=== PATIENT | female | born 1985 | race Caucasian/White ===

== ENCOUNTER → 2018-01-28 14:02 | Outpatient (CLI) | payer SELFPAY ==
[2018-01-28 16:30] LABS: Chlamydia Trachomatis by PCR Negative (Negative); Neisserai gonorrhoeae by PCR Negative (Negative); Probe Check PASS; Sample Adequacy Control PASS; Specimen Processing Control PASS
[2018-01-29 14:31] LABS: HPV Reflexed? NOT INDICATED
== END ==
PROVIDERS: Visit Provider Obstetrics & Gynecology
DX: Z12.4 Encounter for screening for malignant neoplasm of cervix (principal); Z11.3 Encounter for screening for infections with a predominantly sexual mode of transmission
CPT/HCPCS: 87491; 87591; 88175; G0145

== ENCOUNTER → 2018-02-15 11:46 | Outpatient (CLI) | payer SELFPAY ==
--- NOTE | 2018-02-15 11:46 | DT_ITS ---
This patient was seen during an EMR downtime February 08, 2018 - February 15, 2018. This patient may have a combination of paper and electronic documentation or all paper documentation. All documentation is viewable within the e-chart portion of [email or web address] for each patient visit.
[2018-02-15 12:19] LABS: Absolute Lymphocyte Count 1.65 X10^3/ul (0.83-4.51); Absolute Neutrophil Count 7.9 X10^3/uL (2.0-7.7); Basophil# 0.02 X10^3/uL; Basophil% 0.2 % (0-1); Eosinophil# 0.13 X10^3/uL; Eosinophils% 1.2 % (0-5); Hemoglobin 12.7 g/dl (12.0-15.0); Lymphocyte # 1.65 X10^3/ul (4.0); Lymphocyte % 15.7 % (19-41); Mean Corp Hgb Conc 34.3 g/gl (32-36); Mean Corpuscular Hgb 31.3 pg (27.0-32.0); Mean Corpuscular Volume 91.1 fL (81-99); Mean Platelet Vol. 9.3 fl (6.2-12.0); Monocyte# 0.81 X10^3/uL; Monocyte% 7.7 % (0-10); Neutrophil # 7.92 X10^3/uL (2.7-7.7); Neutrophil % 75.1 % (47-70); Platelet Count 298 K/mm3 (150-450); RBC Distribution Width CV 13.5 % (11.6-14.6); RBC Distribution Width SD 44.7 fl (35.1-43.9); Red Blood Count 4.06 M/mm3 (4.2-5.4); White Blood Count 10.5 K/mm3 (4.4-11.0)
[2018-02-15 12:20] LABS: POSITIVE COUNT NO; POSITIVE DIFFERENTIAL NO; POSITIVE MORPHOLOGY NO
[2018-02-15 12:40] LABS: Color, Urine Yellow (Yellow); Glucose, Dipstick Normal (Normal); Ketone-Dipstick Negative (Negative); Leukocyte Esterase-Dipstick 25 /ul (Negative); Nitrite-Dipstick Negative (Negative); Occult Blood-Urine 25 /ul (Negative); Protein-Dipstick Negative (Negative); Specific Gravity, Urine 1.015 (1.002-1.030); Urine Bilirubin Dipstick Negative (Negative); Urine Clarity Sl. Cloudy (Clear); Urine Urobilinogen Normal (Normal)
[2018-02-15 12:48] LABS: Thyroid Stim Hormone (TSH) 0.79 uIU/mL (0.358-3.74)
[2018-02-15 13:28] LABS: HIV - WCH Non-Reactive (Nonreactive); Rubella IgG 27.2 IU/mL
[2018-02-19 03:47] LABS: Prenatal RPR NONREACTIVE (NONREACTIVE)
== END ==
PROVIDERS: Visit Provider Obstetrics & Gynecology
DX: Z34.81 Encounter for supervision of other normal pregnancy, first trimester (principal)
CPT/HCPCS: 36415; 81002; 84443; 85025; 86703; 86762; 86803; 87340

== ENCOUNTER → 2018-06-15 10:31 | Outpatient (CLI) | payer SELFPAY ==
[2018-06-15 12:22] LABS: Hematocrit 36.4 % (37-47); Hemoglobin 12.5 g/dl (12.0-15.0); Mean Corp Hgb Conc 34.3 g/gl (32-36); Mean Corpuscular Hgb 32.1 pg (27.0-32.0); Mean Corpuscular Volume 93.3 fL (81-99); Mean Platelet Vol. 10.1 fl (6.2-12.0); Platelet Count 310 K/mm3 (150-450); RBC Distribution Width CV 13.1 % (11.6-14.6); RBC Distribution Width SD 43.6 fl (35.1-43.9); White Blood Count 12.7 K/mm3 (4.4-11.0)
[2018-06-15 12:25] LABS: Scan Indicated on CBC? Y/N NO
[2018-06-15 12:36] LABS: Glucose Challenge Gest 1H 50g 132 mg/dL (70-140)
== END ==
PROVIDERS: Visit Provider Obstetrics & Gynecology
DX: Z34.82 Encounter for supervision of other normal pregnancy, second trimester (principal)
CPT/HCPCS: 36415; 82950; 85027

== ENCOUNTER 2018-09-01 12:35 | Inpatient (IN) | payer SELFPAY ==
--- NOTE | 2018-08-26 11:33 | NURSING ---
Pt. states she took a couple of natural things for her anxiety rather than prescriptions. States Dr. Slaughter was aware of these natural remedies. One was called Tranquiline, she thought, unsure of other name.
[2018-08-26 12:15] VITALS: BMI 42.3
[2018-09-01] VITALS (19 sets, daily range): BP systolic 95–116; BP diastolic 46–88; PULSE 60–85; RESP 16–20; TEMP 36.3–37; O2SAT 95–99; BMI 43.7
[2018-09-01] MEDS: Lactated Ringers 1,000 ML 100 ML IV ×3 (11:20→17:15)
[2018-09-01 11:44] LABS: Absolute Lymphocyte Count 1.48 X10^3/ul (0.83-4.51); Absolute Neutrophil Count 10.2 X10^3/uL (2.0-7.7); Basophil# 0.02 X10^3/uL; Basophil% 0.2 % (0-1); Eosinophil# 0.18 X10^3/uL; Eosinophils% 1.4 % (0-5); Hematocrit 36.3 % (37-47); Hemoglobin 12.2 g/dl (12.0-15.0); Lymphocyte # 1.48 X10^3/ul (4.0); Lymphocyte % 11.4 % (19-41); Mean Corp Hgb Conc 33.6 g/gl (32-36); Mean Corpuscular Volume 92.4 fL (81-99); Monocyte# 1.06 X10^3/uL; Monocyte% 8.2 % (0-10); Neutrophil # 10.18 X10^3/uL (2.7-7.7); Neutrophil % 78.3 % (47-70); POSITIVE COUNT NO; POSITIVE DIFFERENTIAL NO; POSITIVE MORPHOLOGY NO; Platelet Count 262 K/mm3 (150-450); RBC Distribution Width CV 13.1 % (11.6-14.6); Red Blood Count 3.93 M/mm3 (4.2-5.4)
[2018-09-01] MEDS: Sodium Citrate/Citric Acid 30 ML UDC PO (12:45)
[2018-09-01] MEDS: Cefazolin 2 GM in 0.9% Normal Saline 100 ML IV (12:50)
[2018-09-01] MEDS: Oxytocin 30 units/NS 500 ml 30 UNITS/500 ML IV.SOLN 167 UNITS IV (13:09)
--- NOTE | 2018-09-01 13:32 | PLAC_PTH ---
PATIENT: GLADYS MISHRA LOC: [facility] U#:[id number] AGE/SX: 32/F ROOM: WP004 RE09/01/[address]: Dr. Richelle Slaughter MD : [id number] BED: 1 DIS: 09/04/2018 SPEC #: [id number] RECD: 09/01/18 15:32 STATUS: TYSHAWN RESeverino #: [id number] DALLIN: 09/01/18 13:[address]: Richelle Slaughter DEPT: SURGICAL PATHOLOGY RECD BY: Piyush Bower ENTERED: 09/02/18 10:54 SP TYPE: PLACENTA OTHR DR: No Primary Care Phys Tissues: Placenta, NOS Procedures: Surgery Specimen Level V HEADER OPERATION: Repeat section PRE-OP DIAGNOSIS: Nonreassuring FHT tracing; no movement TISSUE SUBMITTED: Placenta MICROSCOPIC DIAGNOSIS Jaime placenta (653 gm): Umbilical cord - trivascular with no inflammation. Placental membranes - focal acute deciduitis. Placental disc - focal nonspecific chronic villitis, mildly increased intraparenchymal fibrin plaques and mild Kristine-Indra change. AM:lb 09/03/18 MICROSCOPIC DESCRIPTION Slides are reviewed. GROSS DESCRIPTION SPECIMEN: PLACENTA / CLINICAL INFORMATION: A. Weight: 2.824 kg B. Gestational Age: 38 weeks C. Sex: Female PLACENTAL WEIGHT (POST FIXATION): 653 gm PLACENTAL DIMENSIONS: Disrupted, 20 x 15 x 3 cm PLACENTAL SHAPE: Usual ovoid PLACENTAL WEIGHT FOR GESTATIONAL AGE: Within 10-99th percentile MEMBRANES - Present A. Insertion: Marginal B. Site of rupture from edge: At edge of placental disc C. Color of membrane: Montero-peacock D. Abnormalities: None UMBILICAL CORD - Present A. Color: Montero-peacock B. Insertion: Near central insertion C. Length: 31 cm D. Diameter: 1.2 cm E. Number of vessels: Three F. Abnormalities: None PLACENTAL DISC - Present A. Color of surface: Montero-peacock B. surface abnormalities: None C. Maternal cotyledons: Intact with minimal tears D. Attached retro placental clot: No clot E. Cut surface: Dark red and spongy F. Lesions: None G. Separate clot: Absent SECTIONS SUBMITTED: 1. Membrane roll and umbilical cord ( end notched) 2. Placental disc, and maternal surfaces 3. Placental disc, and maternal surfaces 4. Placental disc, and maternal surfaces AM:lb 09/02/18 TC:2 CPT: 19366
--- NOTE | 2018-09-01 13:38 | PCM.DCCSEC ---
Discharge Diet: No Restrictions Discharge Activity: May Shower, May Take a Tub Bath Return to work on:: 10/18/18 May resume sexual activity in: 4-6 weeks Lifting Restrictions: 20 pounds Additional Activity Instructions:: Nothing in the vagina for 4-6 weeks. You may return to work/school in 6 weeks. Change Dressing in (Days):: 7 Remove Dressing in (days):: 7 Cleanse incision/area with: Soap & Water, Keep Dressing Clean & Dry Additional Instructions: If you experience any of the following, contact your healthcare provider. Bleeding that soaks a pad every hour for 2 hours Fever 100.4 or higher Unrelieved incision or abdominal pain Swelling, redness, discharge or bleeding from your incision Problems urinating (including inability to urinate or burning while urinating). Visual changes Severe headache Flu-like symptoms Pain or redness in one of both of your breasts Pain, warmth, tenderness or swelling in your legs, especially the calf area Frequent nausea and vomiting Symptoms of depression or anxiety If you experience any of the following, call 911 or go to the nearest Emergency Room. Chest pain Problems breathing Seizure activity Partial or complete paralysis of a body part, slurred speech, weakness or drooping of the face, or a sudden inability to walk or hold your balance Allergies/Adverse Reactions: Allergies No Known Allergies Allergy (Verified 09/01/18 11:36) Medications to take at Discharge Vits [Prenatabs FA] 1 tablet PO DAILY 08/26/18 Docusate Sodium [Colace] 100 mg PO BID #30 capsule 09/01/18 Naproxen [Naprosyn] 250 - 500 mg PO TID PRN PRN #30 tablet 09/01/18 Oxycodone HCl/Acetaminophen [Percocet 5-325] 1 - 2 tablet PO Q6H PRN PRN 7 Days #20 tablet 09/01/18 Polyethylene Glycol 3350 [Miralax] 17 gm PO DAILY PRN #14 packet 09/01/18 The following prescriptions were given: Oxycodone HCl/Acetaminophen [Percocet 5-325] 1 - 2 tablet PO Q6H PRN PRN 7 Days #20 tablet PRN Reason: Mod-Severe Pain (4-06/16) Naproxen [Naprosyn] 250 - 500 mg PO TID PRN PRN #30 tablet PRN Reason: Mild-Mod Pain (1-01/14) Polyethylene Glycol 3350 [Miralax] 17 gm PO DAILY PRN #14 packet PRN Reason: Constipation Docusate Sodium [Colace] 100 mg PO BID #30 capsule Follow-Up: Call to make an appointment with your doctor for an incision check in 1-2 weeks. You will also need a 6 week post- follow up appointment. Test results from this visit will be discussed in further detail at your follow-up appointment, if applicable. Please Follow Up With: Richelle Slaughter MD - [phone] When: Call to make an appointment for an incision check in 2 weeks. Primary Care Physician: Care Physician,No Primary [Primary Care Provider] - Proposed Discharge Date: 09/05/18
--- NOTE | 2018-09-01 13:42 | DCINST_ITS ---
Discharge Diet: No Restrictions Discharge Activity: May Shower, May Take a Tub Bath Return to work on:: 10/18/18 May resume sexual activity in: 4-6 weeks Lifting Restrictions: 20 pounds Additional Activity Instructions:: Nothing in the vagina for 4-6 weeks. You may return to work/school in 6 weeks. Change Dressing in (Days):: 7 Remove Dressing in (days):: 7 Cleanse incision/area with: Soap & Water, Keep Dressing Clean & Dry Additional Instructions: If you experience any of the following, contact your healthcare provider. * Bleeding that soaks a pad every hour for 2 hours * Fever 100.4 or higher * Unrelieved incision or abdominal pain * Swelling, redness, discharge or bleeding from your incision * Problems urinating (including inability to urinate or burning while urinating). * Visual changes * Severe headache * Flu-like symptoms * Pain or redness in one of both of your breasts * Pain, warmth, tenderness or swelling in your legs, especially the calf area * Frequent nausea and vomiting * Symptoms of depression or anxiety If you experience any of the following, call 911 or go to the nearest Emergency Room. * Chest pain * Problems breathing * Seizure activity * Partial or complete paralysis of a body part, slurred speech, weakness or drooping of the face, or a sudden inability to walk or hold your balance Allergies/Adverse Reactions: Allergies No Known Allergies Allergy (Verified 09/01/18 11:36) Medications to take at Discharge Vits [Prenatabs FA] 1 tablet PO DAILY 08/26/18 Docusate Sodium [Colace] 100 mg PO BID #30 capsule 09/01/18 Naproxen [Naprosyn] 250 - 500 mg PO TID PRN PRN #30 tablet 09/01/18 Oxycodone HCl/Acetaminophen [Percocet 5-325] 1 - 2 tablet PO Q6H PRN PRN 7 Days #20 tablet 09/01/18 Polyethylene Glycol 3350 [Miralax] 17 gm PO DAILY PRN #14 packet 09/01/18 The following prescriptions were given: Oxycodone HCl/Acetaminophen [Percocet 5-325] 1 - 2 tablet PO Q6H PRN PRN 7 Days #20 tablet PRN Reason: Mod-Severe Pain (-06/16) Naproxen [Naprosyn] 250 - 500 mg PO TID PRN PRN #30 tablet PRN Reason: Mild-Mod Pain (-01/14) Polyethylene Glycol 3350 [Miralax] 17 gm PO DAILY PRN #14 packet PRN Reason: Constipation Docusate Sodium [Colace] 100 mg PO BID #30 capsule Follow-Up: Call to make an appointment with your doctor for an incision check in 1-2 weeks. You will also need a 6 week post- follow up appointment. Test results from this visit will be discussed in further detail at your follow- up appointment, if applicable. Please Follow Up With: Richelle Slaughter MD - [phone] When: Call to make an appointment for an incision check in 2 weeks. Primary Care Physician: Care Physician,No Primary [Primary Care Provider] - Proposed Discharge Date: 09/05/18
--- NOTE | 2018-09-01 14:33 | PCM.OP.BLANK ---
Operative Report Date of Procedure: 09/01/18 PROCEDURE: Repeat C section. Preoperative diagnosis: 38 5/7 wk EGA No movement, nonreassuring FHR tracing. Prior C section, planned repeat C section Postop diagnosis: 38 5/7 wk EGA No movement , nonreassuring FHR tracing. Prior C section, planned repeat C section Thick meconium stained fluid Anesthesia: Spinal, Dr Damon, and Av Rosales CRNA Surgeon: Richelle Slaughter MD Reject Opener And Filler: XENIA Tompkins Chef Under present for delivery: Dr Albright EBWilian 600 cc Complications: none Drains: Riddle draining clear yellow appearing urine Fluids: replacement LR Findings: At amniotomy, thick meconium stained fluid was noted. Jaime viable female in vertex presentation. Apgars 3/8/9, Baby weight: 6# 4 oz There was a normal appearing uterus, fallopian tubes and ovaries bilaterally. There were minimal filmy adhesions between the bladder and lower uterine segment. PATH: Placenta to pathology. Routine cord gases were also sent. Narrative account: After the risks, benefits and alternatives of the procedure were reviewed with the patient, informed consent was obtained. The patient was taken to the Operating room with an IV running, and placed in a seated position on the operating table for placement of the spinal. Once the spinal had been administered, she was briefly frog-legged for Riddle catheter placement, and then repositioned to dorsal supine position with leftward displacement of the uterus, and prepped and draped in the usual sterile fashion. Once the spinal was deemed adequate, a Pfannenstiel skin incision was created using the knife (through the prior skin incision scar). The incision was carried down to the rectus fascia using the knife. The fascia was nicked in the midline. The fascial incision was extended bilaterally using curved Osborn scissors. The superior aspect of the fascial incision was grasped with Yuan clamps and tented up and the underlying rectus abdominal muscles were dissected free. In a similar manner, the inferior aspect of the facial incision was grasped with Yuan clamps tented up and the underlying rectus abdominal muscles were dissected free. The rectus abdominis muscles were tented up in the midline with María clamps and the peritoneum was identified and entered by sharp dissection high in the incision. The rectus abdominis muscles were divided along with the peritoneum, superiorly and inferiorly from the initial defect created by sharp dissection. The rectus abdominis muscles and peritenoneum were stretched laterally and a bladder blade was inserted. A bladder flap was created along the lower uterine segment with Metzenbaum scissors . The uterine incision was then created using Metzenbaum scissors. The operators fingertips were used to extend the uterine incision by blunt dissection in a caudad- cephalad orientation . Thick meconium stained fluid was noted at amniotomy. The vertex was then delivered atraumatically through the incision. The OP and nares were bulb suctioned on the abdomen. There was no cry noted. The shoulders delivered easily . The cord clamped x two and cut. And the infant was handed off to the nurse awaiting delivery and to Dr. Albright for attendance, after briefly showing her to her parents. The baby had no spontaneous cry and poor tone was noted. The placenta was then delivered. The uterus was exteriorized and cleared of clots and debris . The uterine incision was repaired with 1 Vicryl in a running locked fashion. A second imbricating layer was then placed, using 1 Monocryl in running nonlocked fashion. Bovie cautery was used to treat any bleeding areas . Excellent hemostasis was noted. At this point the uterus was returned to the abdominal cavity. The gutters were cleared of clots and debris and the incision at the uterus was inspected. Excellent hemostasis was noted. The peritoneal edges and rectus abdominis muscles were reapproximated in the midline with interrupted vertical mattress stitches of 1 Vicryl. Excellent hemostasis was noted at the subfascial space The fascia was closed in a running nonlocked fashion with a Stratofix. The Subcutaneous fatty tissue was Bovie cauterized as needed for hemostasis. This layer was then reapproximated in a running single layer closure of 3-0 Vicryl to eliminate space. The skin edges were closed in a Subcuticular stitch of 4-0 Monocryl. The incision was cleansed. Cavilon, Steristrips, and Mepilex dressing were applied to the skin . The patient was then transferred to the recovery room bed in stable condition after tolerating the procedure well. Sponge, lap, needle and instrument counts correct times two. Medications given preop and intraoperatively included: Ancef 2 gm was given heavy antiarmor weapons infantryman to the operating room. The patient also received Pitocin given IV after cord clamp, and Toradol 30 mg IV times one. For a complete listing of medications given preop and intraoperatively, please see the anesthesia record.
[2018-09-01] MEDS: Ketorolac 30 MG/ML Syringe IV (18:06)
[2018-09-02] VITALS (9 sets, daily range): BP systolic 102–122; BP diastolic 45–80; PULSE 62–82; RESP 16–18; TEMP 36.1–37.3; O2SAT 94–98
[2018-09-02] MEDS: Ketorolac 30 MG/ML Syringe IV ×4 (00:28→18:21)
[2018-09-02] MEDS: Lactated Ringers 1,000 ML 100 ML IV (02:57)
[2018-09-02 06:55] LABS: Hematocrit 33.3 % (37-47); Hemoglobin 11.2 g/dl (12.0-15.0); Mean Corp Hgb Conc 33.6 g/gl (32-36); Mean Corpuscular Hgb 31.3 pg (27.0-32.0); Mean Platelet Vol. 9.9 fl (6.2-12.0); Platelet Count 205 K/mm3 (150-450); RBC Distribution Width CV 13.3 % (11.6-14.6); RBC Distribution Width SD 45.4 fl (35.1-43.9); Red Blood Count 3.58 M/mm3 (4.2-5.4); White Blood Count 12.7 K/mm3 (4.4-11.0)
[2018-09-02 06:58] LABS: Scan Indicated on CBC? Y/N NO
--- NOTE | 2018-09-02 07:26 | PCM.PN.OB ---
Subjective: POD#1 C/S at 38 5/7 wk for nonreassuring FHR tracing. Feeling better, no N/V/D. States some soreness at incision, but really feels good. Tired and returning to bed for rest. Objective: in room, under bili lights. Appears vigorous. - Physical Exam General: Alert, Oriented x3, Cooperative, No apparent distress HEENT: Atraumatic Neck: Supple Abdomen: Soft - Fundus firm, minimally tender c/w postop status Skin: Incision - Mepilex CDI with pinpoint spot of old blood noted, marked. Psych/Mental Status: Normal Affect Vital Signs Temp Pulse Resp BP Pulse Ox 98.7 F 71 18 102/45 L 95 09/02/18 04:11 09/02/18 06:15 09/02/18 06:15 09/02/18 04:11 09/02/18 06:15 Oxygen Delivery Method Room Air Weight: 112.037 kg Body Mass Index (BMI) 43.7 Intake and Output for Last 24 Hours 08/31/18 09/01/18 09/02/18 23:59 23:59 23:59 Intake Total 1297 / 1297 850 / 850 Output Total 575 / 575 400 / 400 Balance 722 / 722 450 / 450 Laboratory Tests Past 24 Hrs 09/01/18 09/01/18 09/02/18 11:20 11:20 06:30 WBC 13.0 H 12.7 H RBC 3.93 L 3.58 L Hgb 12.2 11.2 L Hct 36.3 L 33.3 L MCV 92.4 93.0 MCH 31.0 31.3 MCHC 33.6 33.6 RDW 13.1 13.3 RDW Differential 44.0 H 45.4 H Plt Count 262 205 MPV 10.0 9.9 Immature Gran % (Auto) 0.500 Neut % (Auto) 78.3 H Lymph % (Auto) 11.4 L Phelps % (Auto) 8.2 Eos % (Auto) 1.4 Baso % (Auto) 0.2 Absolute Neuts (auto) 10.2 H Absolute Lymphs (auto) 1.48 Total Counted Not Reportable Blood Type O POSITIVE Antibody Screen NEGATIVE Medical Necessity - Tobacco Use Smoking Status: Former smoker Assessment/Plan POD#1 Repeat C/S 38 5/7 wk for nonreassuring FHR tracing Stable postop. Inc diet and activity as tolerated. D/C jordan for voiding trial. S/L IV for continued Toradol. Begin po pain meds today. Continue care.
[2018-09-02 08:49] LABS: Pathology Specimen OB SEE PATHOLOGY REPORT
[2018-09-02] MEDS: Prenatal Vits Tablet 1 TABLET PO (11:43)
[2018-09-02] MEDS: 0.9% Saline Lock 10 ML Syringe IV ×2 (11:43→18:21)
[2018-09-02] MEDS: oxyCODONE 5 MG Tablet PO ×2 (17:16→18:44)
[2018-09-02] MEDS: Senna/Docusate Sodium 1 Tablet PO (18:44)
[2018-09-03] MEDS: 0.9% Saline Lock 10 ML Syringe IV (00:20)
[2018-09-03] MEDS: Naproxen 250 MG Tablet PO ×3 (00:21→16:30)
[2018-09-03 02:00] VITALS: BP 107/51; PULSE 74; RESP 18; TEMP 36.7; O2SAT 98
[2018-09-03] MEDS: Acetaminophen 500 MG Tablet 1000 MG PO ×3 (02:12→19:59)
[2018-09-03 08:12] VITALS: BP 120/68; PULSE 74; RESP 18; TEMP 36.7; O2SAT 99
--- NOTE | 2018-09-03 08:31 | PCM.PN.OB ---
Subjective: POD#2 Repeat C/S Doing OK. More cramping today. Baby is out of bili lights and ok for dischg. Uncertain if going home today or tomorrow. Self pay. Bottle feeding. States has not showered yet. Didn't like the OxyIR as felt room moving. May try other pain med or take less of that medication. States passing flatus, No N/V/D - Physical Exam General: Alert, Oriented x3, Cooperative, No apparent distress HEENT: Atraumatic Neck: Supple Abdomen: Soft - fundus firm and tender c/w postop status. At approx 2 cm inferior to umbilicus Skin: Incision - Mepilex CDI. Neurological: Cranial nerves II-XII grossly intact Psych/Mental Status: Normal Affect - a little anxious per baseline. Vital Signs Temp Pulse Resp BP Pulse Ox 98.1 F 74 18 120/68 99 09/03/18 08:12 09/03/18 08:12 09/03/18 08:12 09/03/18 08:12 09/03/18 08:12 Oxygen Delivery Method Room Air Weight: 112.037 kg Body Mass Index (BMI) 43.7 Intake and Output for Last 24 Hours 12//18 12/18 18 23:59 23:59 23:59 Intake Total 1297 / 1297 850 / 850 Output Total 575 / 575 1800 / 1800 Balance 722 / 722 -950 / -950 Medical Necessity - Tobacco Use Smoking Status: Former smoker Assessment/Plan POD#2 Repeat C/S 38 5/7 wk for nonreassuring FHR tracing Stable postop. Recommend stay on schedule for aleve and tylenol, may add OxyIR prn. Dischg today or tomorrow, per pt preference . Pkg pricing, self pay.
[2018-09-03] MEDS: Prenatal Vits Tablet 1 TABLET PO (11:12)
[2018-09-03 14:17] VITALS: BP 128/76; PULSE 71; RESP 16; TEMP 37.2; O2SAT 99
[2018-09-03 20:20] VITALS: BP 125/66; PULSE 74; RESP 19; TEMP 37.1; O2SAT 96
[2018-09-04 02:57] VITALS: BP 128/73; PULSE 80; RESP 16; TEMP 36.9; O2SAT 99
[2018-09-04] MEDS: Naproxen 250 MG Tablet PO ×2 (02:57→12:38)
[2018-09-04 10:00] VITALS: BP 121/72; PULSE 73; RESP 16; TEMP 37.1
--- NOTE | 2018-09-04 10:21 | PCM.PN.OB ---
Subjective: POD#3 Repeat C/S at 38 5/7 wk EGA. Feeling very well. 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 States no s/sx of depression and is very happy with baby, recovery. She is planning to bottle feed. Reviewed how to treat engorgement if this occurs States very severe cramping yesterday, then passed a clot and all improved since then. Objective: Sitting up in chair. Smiling, interactive. in room. - Physical Exam General: Alert, Oriented x3, Cooperative, No apparent distress HEENT: Atraumatic Neck: Supple Abdomen: Soft, Non Tender Skin: Incision - Mepilex CDI. Neurological: Cranial nerves II-XII grossly intact Psych/Mental Status: Normal Affect Vital Signs Temp Pulse Resp BP Pulse Ox 98.5 F 80 16 128/73 H 99 09/04/ 02:57 09/04/18 02:57 09/04/18 02:57 09/04/18 02:57 09/04/18 02:57 Oxygen Delivery Method Room Air Weight: 112.037 kg Body Mass Index (BMI) 43.7 Intake and Output for Last 24 Hours 12/18 12/18 09/04/18 23:59 23:59 23:59 Intake Total 850 / 850 Output Total 1800 / 1800 Balance -950 / -950 Medical Necessity - Tobacco Use Smoking Status: Former smoker Assessment/Plan POD#3 Repeat C/S 38 5/7 wk for nonreassuring FHR tracing Stable postop. Dischg today RTO for postop check up as scheduled in 2 wks. , prn sooner. reviewed s/sx of pp depression and encouraged to call in prn if this starts.
--- NOTE | 2018-09-04 10:25 | PN.OBGYN_ITS ---
Subjective: POD#3 Repeat C/S at 38 5/7 wk EGA. Feeling very well. 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 States no s/sx of depression and is very happy with baby, recovery. She is planning to bottle feed. Reviewed how to treat engorgement if this occurs States very severe cramping yesterday, then passed a clot and all improved sinc e then. Objective: Sitting up in chair. Smiling, interactive. in room. - Physical Exam General: Alert, Oriented x3, Cooperative, No apparent distress HEENT: Atraumatic Neck: Supple Abdomen: Soft, Non Tender Skin: Incision - Mepilex CDI. Neurological: Cranial nerves II-XII grossly intact Psych/Mental Status: Normal Affect Vital Signs Temp Pulse Resp BP Pulse Ox 98.5 F 80 16 128/73 H 99 09/04/18 02:57 09/04/18 02:57 09/04/18 02:57 09/04/18 02:57 09/04/18 02:57 Oxygen Delivery Method Room Air Weight: 112.037 kg Body Mass Index (BMI) 43.7 Intake and Output for Last 24 Hours 12/18 12/18 09/04/18 23:59 23:59 23:59 Intake Total 850 / 850 Output Total 1800 / 1800 Balance -950 / -950 Medical Necessity - Tobacco Use Smoking Status: Former smoker Assessment/Plan POD#3 Repeat C/S 38 5/7 wk for nonreassuring FHR tracing Stable postop. Dischg today RTO for postop check up as scheduled in 2 wks. , prn sooner. reviewed s/sx of pp depression and encouraged to call in prn if this starts.
--- NOTE | 2018-09-04 11:44 | PCM.DC.SUM ---
Discharge Date and Diagnosis Date of Admission: 09/01/18 - 38 5/7 wk N/V/D and no movement. Prior C/S Date of Discharge: 09/04/18 - POD#3 Repeat C/S Hospital Course and Treatment Operations: - - Repeat C section Summary of Care Provided: The patient is a 32 year old female at 38 5/7 wk EGA presents for evaluation with CC if N/V/D and no feeling FM for two days. Scheduled for repeat C/S at 39 wks. EFM with decreased variability. IV started and labs sent. Nonreactive NST. Plan was to have BPP, but prior to this being performed the FHR tracing became less reassuring, with decelerations noted. Decision made to proceed with repeat C/S ARTURO for nonreassuring FHR. Underwent repeat C/S on 08/03/18. Procedure findings: east viable female in thick meconium stained fluid with poor tone and poor respiratory effort at delivery. Dr Granados present for delivery due to nonreassuring FHR. Baby apgars 3/8/9 and weight 6# 4 oz. Procedure uncomplicated with minimal blood loss. Postoperative course uneventful with Hgb stable postop at 11.2 g/dl , decreased from 12.2 g/dl preop. AVSS and exam benign. Bottle feeding. Baby under bili lights, then stable for discharge by POD#2 . Patient elected to stay until POD#3 Home in stable condition POD#3. H/o severe pp depression with her son 4 yrs ago. Currently denies any symptoms of depression. Reviewed s/sx and encouraged to call office to notify of symptoms begin. - Physical Exam Vital Signs Temp Pulse Resp BP Pulse Ox 98.7 F 73 16 121/72 H 99 09/04/18 10:00 09/04/18 10:00 09/04/18 10:00 09/04/18 10:00 09/04/18 02:57 Oxygen Delivery Method Room Air Weight: 112.037 kg Body Mass Index (BMI) 43.7 Intake and Output for Last 24 Hours 09/02/18 09/03/18 09/04/18 23:59 23:59 23:59 Intake Total 850 / 850 Output Total 1800 / 1800 Balance -950 / -950 Discharge Diet: No Restrictions Discharge Activity: May Shower, May Take a Tub Bath Return to work on:: 10/18/18 May resume sexual activity in: 4-6 weeks Additional Activity Instructions:: Nothing in the vagina for 4-6 weeks. You may return to work/school in 6 weeks. Change Dressing in (Days):: 7 Remove Dressing in (days):: 7 Cleanse incision/area with: Soap & Water, Keep Dressing Clean & Dry Home Medications: Medications to take at Discharge Vits [Prenatabs FA] 1 tablet PO DAILY 08/26/18 Docusate Sodium [Colace] 100 mg PO BID #30 capsule 09/01/18 Naproxen [Naprosyn] 250 - 500 mg PO TID PRN PRN #30 tablet 09/01/18 Oxycodone HCl/Acetaminophen [Percocet 5-325] 1 - 2 tablet PO Q6H PRN PRN 7 Days #20 tablet 09/01/18 Polyethylene Glycol 3350 [Miralax] 17 gm PO DAILY PRN #14 packet 09/01/18 Following Prescrptions Were Given to Patient: Oxycodone HCl/Acetaminophen [Percocet 5-325] 1 - 2 tablet PO Q6H PRN PRN 7 Days #20 tablet PRN Reason: Mod-Severe Pain (4-10/10) Naproxen [Naprosyn] 250 - 500 mg PO TID PRN PRN #30 tablet PRN Reason: Mild-Mod Pain (1-5/10) Polyethylene Glycol 3350 [Miralax] 17 gm PO DAILY PRN #14 packet PRN Reason: Constipation Docusate Sodium [Colace] 100 mg PO BID #30 capsule Primary Care Physician: Care Physician,No Primary [Primary Care Provider] - Please Follow Up With: Richelle Slaughter MD - [phone] When: Call to make an appointment for an incision check in 2 weeks. Medical Necessity - Tobacco Use Smoking Status: Former smoker Meaningful Use Info Meaningful Use Diagnoses (Choose all that apply): None applicable
[2018-09-04] MEDS: Prenatal Vits Tablet 1 TABLET PO (12:38)
--- NOTE | 2018-09-04 13:04 | NURSING ---
1240 Discharged to home via wheelchair with baby. States she feels good and is ready to go home. States yes, that she is able to care for herself and her .
== END 2018-09-04 12:40 | disposition home or self-care (01) | DRG 788 ==
LOC: WP 13:12 → WPOUT 09-02 07:49
PROVIDERS: Obstetrics & Gynecology; Admitting Provider Obstetrics & Gynecology; Referring Provider Obstetrics & Gynecology; Visit Provider Obstetrics & Gynecology
DX: O34.211 Maternal care for low transverse scar from previous cesarean delivery (principal); O76 Abnormality in fetal heart rate and rhythm complicating labor and delivery; O36.8130 Decreased fetal movements, third trimester, not applicable or unspecified; O77.0 Labor and delivery complicated by meconium in amniotic fluid; Z87.891 Personal history of nicotine dependence; Z3A.38 38 weeks gestation of pregnancy; Z37.0 Single live birth
CPT/HCPCS: 59025; 59050; 85025; 85027; 86850; 86900; 88307; 99218; J7120; A4216; G0378